=== PATIENT | female | born 1985 | race Caucasian/White ===

== ENCOUNTER 2024-08-02 11:10 | Outpatient (AMB) | payer OTHER, SELFPAY ==
--- NOTE | 2024-08-02 11:13 | A.OFFPC_ITS ---
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 Intake Note: patient here for new patient visit Community Recreation Programmer Required: No Is last menstrual period known: Yes (she just had a baby) Last menstrual period: 04/24/23 Post menopausal: No Patient : No Allergies No Known Allergies Allergy (Verified 08/02/24 11:29) Tobacco use date assessed: 08/02/24 Dental Screening Dental Screen Date: 08/02/24 Did you have a dental visit in the last 12 months?: Yes Did you have a dental problem in the last 6 months where you did not have access to dental care?: No Was dental information given to patient?: Patient has dentist HPI HPI Comments History of Present Illness Details New patient Prior PCP? Unknown name/practice Last office visit Last - 2022 Last lab work - 05/2024 at [facility] ED Acute issue(s) - No acut Past Medical History - Anxiety - IBS - Migraine - Uterus bicornis - Spinal curvature - Right renal agenesis Surgical History - LASIK surgery - Left hand ORIF - section - [place] teeth extraction Family History - MGM: Breast cancer Social History - Nonsmoker. Does not vape. Drinks 2-4 d rinks 2 night weekly. No recreational drugs - She has not been making healthy dietar y choices. She exercises routinely. He generally sleep well Health maintenance - Last eye exam was in - Last pap smear test 02/2024: normal - Last mammogram and right breast ultras ound was at [facility] on 06/14/2024: No malignancy. Recommended routine annual mammographic screening beginning at age 40 - Last dental visit was in 11/2023. She h as a dental an appointment for cleaning tomorrow - Last tetanus vaccine was 10/2023 - She has not been vaccinated for the fl u this season; declines vaccination Specialists - Followed by a psychology tech until 04/2024 [facility] Medical History (Updated 08/02/24 @ 12:43 by Dennise Calvin CNP) Agenesis of right kidney Uterus bicornis H/O migraine Anxiety Spinal curvature IBS (irritable bowel syndrome) Delivery by classical section Surgical History (Updated 08/02/24 @ 11:30 by Little Dunbar) [place] teeth extracted Hx of LASIK Family History (Updated 08/02/24 @ 11:35 by Little Dunbar) Maternal Grandmother Breast cancer Social History Housing: House Patient Tobacco Use Status: Never used Tobacco e-Cigarette/Vaping Use: Never Used Second Hand Smoke Exposure: No service: No Current occupational status: employed 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 1. Little interest or pleasure in doing things: not at all 2. Feeling down, depressed, or hopeless: not at all 3. Trouble falling or staying asleep, or sleeping too much: not at all 4. Feeling tired or having little energy: not at all 5. Poor appetite or overeating: not at all 6. Feeling bad about yourself - or that you are a failure or have let yourself or your family down: not at all 7. Trouble concentrating on things, such as reading the newspaper or watching television: not at all 8. Moving or speaking so slowly that other people could have noticed. Or the opposite - being so fidgety or restless that you have been moving around a lot more than usual: not at all 9. Thoughts that you would be better off or of hurting yourself in some way: not at all Total score: 0 Depression Screening Interpretation: Negative Depression Screening Done: Yes 62321 - PHQ-9 Billing: Yes Source: Developed by Drs. Brandon York, Arlette Arnold, Major Colin and colleagues, with an educational tenzin from [employer]. Thrive Questionnaire Date Thrive assessed: 08/02/24 I am a: Patient What is your living situation today?: I have a steady place to live Within the past 12 months, did the food you bought not last and you didn't have the money to get more?: Never true Within the past 12 months, did you worry whether your food would run out before you got money to buy more?: Never true Do you have trouble paying for medicines?: No Do you have trouble getting transportation to medical appointments?: No Do you have trouble paying your heating and electricity bill?: No Do you have trouble taking care of your child, family member or friend?: No Do you have trouble with day-to-day activities such as bathing, preparing meals, shopping, managing finances, etc.?: No Are you currently unemployed and looking for a job?: No Are you interested in more education?: No Please select the resources that you would like help with: None Currently or been in a relationship where the following occur: No concerns reported THRIVE Score: 0 AUDIT C Alcohol Use Questionnaire (AUDIT-C) 1. How often do you have a drink containing alcohol?: 2-4 times a month 2. How many drinks containing alcohol do you have on a typical day when you are drinking?: 3 or 4 3. How often do you have six or more drinks on one occasion?: Never Total Score: 3 Score Reviewed/Action Taken: Yes SARA-7 AMB Questionnaire SARA-7 Date SARA - 7 assessed: 08/02/24 Feeling nervous, anxious, or on edge: 3 = Nearly every day Not being able to stop or control worryin = Several days Worrying too much about different things: 0 = Not at all Trouble relaxin = Not at all Being so restless that it is hard to sit still: 0 = Not at all Becoming easily annoyed or irritable: 0 = Not at all Feeling afraid as if something awful might happen: 3 = Nearly every day Total SARA-7 score (0-4 normal; 5-9 mild; 10-14 moderate; 15-21 severe): 7 Source: Developed by Drs. Brandon York, Arlette Arnold, Major Colin and colleagues, with an educational tenzin from [employer]. SARA-7 Assessment Billing SARA-7 Assessment Tool: SARA-7 Assessment 95754 Review of Systems Const Details: Denies chills, Denies fatigue, Denies fever(s), Denies headache(s) and Denies weakness HEENT Denies change in vision, Denies dizziness, Denies headache(s), Denies hearing loss, Denies nasal congestion, Denies sinus pain, Denies sinus pressure and Denies sore throat Card Denies chest pain, Denies lightheadedness, Denies dyspnea and Denies other (palpitations) Resp Denies cough, Denies dyspnea and Denies wheezing GI Denies abdominal pain, Denies melena, Denies hematochezia, Denies change in bowel habits, Denies dyspepsia and Denies nausea Denies hematuria and Denies dysuria Musc Denies abnormal gait, Denies myalgias, Denies arthralgias, Denies numbness and Denies tingling Skin/Breast Denies rash, Denies unusual bruising and Denies wounds Neuro Denies abnormal gait, Denies dizziness, Denies headache(s), Denies memory loss, Denies numbness, Denies Sensory deficit (Neuro), Denies tingling and Denies weakness Psych Denies anxiety, Denies depression and Denies memory loss Endo Denies cold intolerance, Denies fatigue, Denies heat intolerance, Denies polydipsia and Denies polyuria Roberto/Lymph Denies easy bleeding and Denies easy bruising Aller/Immun Denies wheezing Physical exam (Primary Care) Vital Signs: Last Vital Signs Temp 97.3 F 08/02/24 11:23 Pulse 67 08/02/24 11:23 Resp 16 08/02/24 11:23 BP 105/57 L 08/02/24 11:23 Pulse Ox 97 08/02/24 11:23 Oxygen Delivery Method Room Air 08/02/24 11:23 BMI result Body Mass Index 26.5 Tobacco/Smoking Status: Tobacco use Status Tobacco use date assessed 08/02/24 08/02/24 11:30 Patient Tobacco Use Status Never used Tobacco 08/02/24 11:30 e-Cigarette/Vaping Use Never Used 08/02/24 11:30 PHQ-9: PHQ-9 Score PHQ-9: Total score 0 08/02/24 11:30 Depression Screening Interpretation: Negative Thrive Assessment: Date of Thrive Assessment Date Thrive assessed 08/02/24 08/02/24 11:15 Currently or been in a relationship where the following occur: No concerns reported Const Other: General: no acute distress, well developed, alert and awake Nutritional Appearance: well nourished Orientation/consciousness: patient oriented x3 HENMT Head: Yes normocephalic and Yes atraumatic Ears: hearing grossly normal bilaterally and TM's normal bilaterally General nose exam: Normal external nose present and Normal nares present Mouth: Normal oral and palatal mucosa present and moist mucous membranes Teeth and gingiva: dentition normal Throat: Yes oropharynx normal Eyes Pupils: Equal, round and reactive pupils present and Pupil accommodation reflex normal EOM: EOMs intact bilaterally Neck Neck: Yes normal visual inspection, Yes no lymphadenopathy and Yes trachea midline Thyroid: Thyroid normal Carotids: no bruits Lymphatic: no lymphadenopathy noted Chest Chest palpation & inspection: normal inspection of the chest Resp Effort & Inspection: normal respiratory effort Auscultation: clear to auscultation bilaterally Cardio Rate: regular rate Rhythm: regular rhythm Heart sounds: S1 normal heart sound present, S2 normal heart sound present, no gallops, no murmurs and no rubs Bruits: no abdominal aortic bruits and no carotid bruits GI Palpation (GI): No Abdominal aortic bruit present, Soft to palpation, nontender, No hepatosplenomegaly present and No Rebound tenderness present Auscultation: normal bowel sounds General: Yes no CVA tenderness Back/Spine/Pelvis Back: no CVA tenderness Cervical Spine: cervical ROM normal and No Cervical spine tenderness Thoracic/Lumbar Spine: thoraco-lumbar ROM normal, No pain with thoraco-lumbar ROM, No thoracic spinal tenderness and No lumbar spinal tenderness Skin General: warm and dry. Normal skin color. Normal skin turgor Lesions: no lesions Rashes: no rashes Trauma: no lacerations or abrasions Wounds: no wounds Nails: normal Neuro General: patient oriented x3, gait normal and CN's II-XI intact bilaterally Cranial nerves: Yes Equal, round and reactive pupils present Cognition (Neuro): normal cognition Gait exam (Neuro): Normal gait present Motor exam (neuro): 5/5 motor strength present throughout Sensory Exam: No Sensory deficit (Neuro) Deep tendon reflexes (DTR's): Right patellar reflex intensity grade: 2+ and Left patellar reflex intensity grade: 2+ Extrem General: Yes normal to inspection, No edema and No calf tenderness Psych Appearance: grossly normal Affect: normal affect Attitude: cooperative Thought process: Normal thought process present Coding Level of Care Code New Pt Prev Care 18-39yr(87938 Diagnoses Normal physical examination, routine Z00.00 Anxiety F41.9 Eye exam, routine Z01.00 Laboratory tests ordered as part of a complete physical exam (CPE) Z00.00 Additional Codes SARA-7 Assessment Billing - SARA-7 Assessment Tool: SARA-7 Assessment 40918 ([id number]) PHQ-9 - 53945 - PHQ-9 Billing: Yes ([id number]) Assessment & Plan Assessment & Plan (1) Normal physical examination, routine: Code(s): Z00.00 - Encounter for general adult medical examination without abnormal findings Category: Medical Plan: No significant physical restrictions or limitations noted. Advised to get lab work done and follow-up for telehealth visit in 2-3 weeks for labs review or so vanesa with symptoms or concerns. Verbalized understanding and agreed with treatment plan. (2) Anxiety: Code(s): F41.9 - Anxiety disorder, unspecified Category: Medical Plan: Continue current treatment regimen. Routine exercise encouraged. Follow-up with worsening or new symptoms. Verbalized understanding and agreed with the plan. (3) Eye exam, routine: Code(s): Z01.00 - Encounter for examination of eyes and vision without abnormal findings Category: Medical Plan: Last eye exam was in . Referred to Ophthalmology. (4) Laboratory tests ordered as part of a complete physical exam (CPE): Code(s): Z00.00 - Encounter for general adult medical examination without abnormal findings Category: Medical Plan: Fasting labs ordered as part of a complete physical exam. Advised to fast for at least 10 hours before getting labs drawn. May drink water Verbalized understanding and agreed with treatment plan. Orders: Orders Comprehensive [place]. Panel Fast Today Z00.00 - Encounter for general adult medical examination without abnormal findings Lipid Panel Today Z00.00 - Encounter for general adult medical examination without abnormal findings TSH reflex Free T4 Today Z00.00 - Encounter for general adult medical examination without abnormal findings UA CC w/rflx Micro + Cult Today Z00.00 - Encounter for general adult medical examination without abnormal findings Complete Blood Count Auto Diff Today Z00.00 - Encounter for general adult medical examination without abnormal findings Microalbumin, Random (w Creat) Today Z00.00 - Encounter for general adult medical examination without abnormal findings Referrals Ophthalmology Referral Z01.00 - Encounter for examination of eyes and vision without abnormal findings
[2024-08-02 11:23] VITALS: BP 105/57; PULSE 67; RESP 16; TEMP 36.3; O2SAT 97; BMI 26.5
== END 2024-08-02 12:02 | disposition home or self-care (01) ==
PROVIDERS: PCP Nurse Practitioner Family; Visit Provider Nurse Practitioner Family
DX: Z00.00 Encounter for general adult medical examination without abnormal findings (principal); F41.9 Anxiety disorder, unspecified; Z01.00 Encounter for examination of eyes and vision without abnormal findings

== ENCOUNTER → 2024-08-02 11:10 | Outpatient (BNVA) | payer OTHER, SELFPAY | PROVIDERS: PCP Nurse Practitioner Family; Visit Provider Nurse Practitioner Family | DX: Z00.00 Encounter for general adult medical examination without abnormal findings (principal); F41.9 Anxiety disorder, unspecified | CPT/HCPCS: 96127 ==

== ENCOUNTER 2024-08-09 09:38 | Outpatient (REF) | payer OTHER, SELFPAY ==
[2024-08-09 11:13] LABS: MANUAL DIFF FLAG NO
[2024-08-09 11:17] LABS: Appearance Urine Clear; Color Urine Yellow; Glucose Urine UA Negative (Negative); Leukocyte Esterase Urine Negative (Negative); Nitrite Urine Negative (Negative); PH 5.5 (5.0-9.0); Specific Gravity - Urine 1.025 (1.005-1.025); Urine Blood Negative (Negative); Urine Ketones Negative (Negative); Urine Protein Negative (Neg-Trace)
[2024-08-09 11:37] LABS: Basophils Absolute Auto 0.1 X10*3/uL (0.0-0.2); Eosinophils Absolute Auto 0.4 X10*3/uL (0.0-0.4); Eosinophils Percent Auto 8.4 % (0-4); Hematocrit 42.6 % (37.0-47.0); Hemoglobin 14.1 g/dl (12.0-16.0); Imm Gran Abs Auto 0.02 X10*3/uL (0.00-0.03); Imm Gran Pct Auto 0.4 % (0.0-0.4); Lymphocytes Absolute Auto 1.7 X10*3/uL (1.2-4.9); Lymphocytes Percent Auto 36.3 % (20-40); Mean Corpuscular HGB Conc 33.1 g/dl (31.0-35.0); Mean Corpuscular Hemoglobin 31.3 pg (27.0-33.0); Mean Corpuscular Volume 94.5 fL (80.0-98.0); Mean Platelet Volume 11.2 fL (9.4-12.3); Monocytes Absolute Auto 0.5 X10*3/uL (0.1-1.2); Monocytes Percent Auto 10.9 % (2-11); Neutrophils Absolute Auto 2.1 x10*3/uL (2.0-8.3); Platelet Count 211 X10*3/uL (160-400); Red Blood Count 4.51 X10*6/uL (4.20-5.50); Red Cell Distribution Width 12.9 % (11.0-16.0); White Blood Count 4.8 X10*3/uL (4.8-10.8)
[2024-08-09 12:12] LABS: Alanine Aminotransferase 20 U/L (0-31); Albumin Level 4.2 g/dL (3.5-5.0); Alkaline Phosphatase 64 U/L (39-117); Anion Gap 9 (12-20); Aspartate Amino Transferase 22 U/L (5-31); Bilirubin Total 0.6 mg/dL (0.0-1.0); Blood Urea Nitrogen 16 mg/dL (9-16); Calcium 9.5 mg/dL (8.4-10.2); Carbon Dioxide 29 mmol/L (22-29); Chloride 107 mmol/L (96-108); Cholesterol 160 mg/dL (<200); Estimated Glomerular Filt Rate > 60; Glucose Fasting 92 mg/dL (60-99); HDL Cholesterol 69 mg/dL (>40); LDL Cholesterol Calculated 81 mg/dL (<100); Potassium 4.5 mmol/L (3.3-5.1); Sodium 140 mmol/L (135-145); Total Protein 6.8 g/dL (6.5-8.0); Triglycerides 51 mg/dL (<150)
[2024-08-09 12:19] LABS: Creatinine Urine 144.11 mg/dL; Microalbum/Creatinine Ratio Ur 3.4 ug/mg cr (<30)
[2024-08-09 12:55] LABS: TSH reflex Free T4 0.97 uIU/mL (0.32-4.0)
== END 2024-08-09 09:39 | disposition home or self-care (01) ==
LOC: HO.WFDLDS 09:38
PROVIDERS: Visit Provider Nurse Practitioner Family
DX: Z00.00 Encounter for general adult medical examination without abnormal findings (principal)
CPT/HCPCS: 36415; 80053; 80061; 81003; 82043; 82570; 84443; 85025

== ENCOUNTER 2025-04-25 13:14 | Outpatient (AMB) | payer OTHER, SELFPAY ==
--- NOTE | 2025-04-25 13:15 | MHC.PC.OV ---
Vital Signs 04/25/25 13:20 Height 5 ft 7 in Weight 171 lb BMI 26.8 BP 107/59 L Blood Pressure Location Lt brachial Position Sitting Respiration 16 Pulse 61 Pulse Source Pulse Oximeter Temp 98.0 F Temp Source Oral Pulse Oximetry (%) 100 Oxygen Delivery Method Room Air Intake Visit Reasons: Left Bunion surgery on May 24 Intake Note: patient here for pre op for left bunion surgery Straddle Bug Required: No Is last menstrual period known: Yes Last menstrual period: 04/05/25 Post menopausal: No Patient : No Allergies No Known Allergies Allergy (Verified 04/25/25 13:38) Medication List - Last Reconciled 04/25/25 by Dennise Calvin CNP desvenlafaxine succinate ER (Pristiq) 50 mg PO DAILY propranolol 10 mg PO .PRN Tobacco use date assessed: 04/25/25 Dental Screening Dental Screen Date: 04/25/25 Did you have a dental visit in the last 12 months?: Yes Did you have a dental problem in the last 6 months where you did not have access to dental care?: No Was dental information given to patient?: Patient has dentist HPI HPI Comments History of Present Illness Details 39-year-old female presents for preop exam. She admits to taking her medications as prescribed without adverse reactions. She has surgery scheduled for bunionectomy of her left great toe with [place] [facility] on 05/24/2025. CBC, BMP, and EKG are required/requested before surgery. No acute symptoms at this time. [facility] Medical History (Updated 04/25/25 @ 13:37 by Dennise Calvin CNP) Agenesis of right kidney Uterus bicornis H/O migraine Anxiety Spinal curvature IBS (irritable bowel syndrome) Delivery by classical section Surgical History (Updated 08/02/24 @ 11:30 by Little Dunbar MA) [place] teeth extracted Hx of LASIK Family History (Updated 08/02/24 @ 11:35 by Little Dunbar MA) Maternal Grandmother Breast cancer Social History Housing: House Patient Tobacco Use Status: Never used Tobacco e-Cigarette/Vaping Use: Never Used Second Hand Smoke Exposure: No service: No Current occupational status: employed 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 Current occupational exposures/hazards: No Cognitive needs: No Hearing needs: No Vision needs: No Female Reproductive History Menstrual Date of last menstrual period: 04/05/25 Questionnaire Thrive Questionnaire Date Thrive assessed: 04/22/25 I am a: Patient What is your living situation today?: I have a steady place to live Within the past 12 months, did the food you bought not last and you didn't have the money to get more?: Never true Within the past 12 months, did you worry whether your food would run out before you got money to buy more?: Never true Do you have trouble paying for medicines?: No Do you have trouble getting transportation to medical appointments?: No Do you have trouble paying your heating and electricity bill?: No Do you have trouble taking care of your child, family member or friend?: No Do you have trouble with day-to-day activities such as bathing, preparing meals, shopping, managing finances, etc.?: No Are you currently unemployed and looking for a job?: No Are you interested in more education?: No Please select the resources that you would like help with: None Currently or been in a relationship where the following occur: No concerns reported THRIVE Score: 0 SARA-7 AMB Questionnaire SARA-7 Date SARA - 7 assessed: 08/02/24 Source: Developed by Drs. Brandon York, Arlette Arnold, Major Colin and colleagues, with an educational tenzin from [employer]. Review of Systems Const Details: Const Denies chills, Denies fatigue, Denies fever(s), Denies headache(s) and Denies weakness ENT Denies dizziness and Denies headache(s) Card Denies chest pain, Denies lightheadedness, Denies dyspnea and Denies other (Palpitations) Resp Denies cough, Denies dyspnea, Denies wheezing and Denies other ( shortness of breath) GI Denies abdominal pain, Denies melena, Denies hematochezia, Denies change in bowel habits, Denies dyspepsia and Denies nausea Denies hematuria and Denies dysuria Musc Denies abnormal gait, Denies myalgias, Denies arthralgias, Denies numbness and Denies tingling Skin/Breast Denies rash, Denies unusual bruising and Denies wounds Neuro Denies abnormal gait, Denies dizziness, Denies headache(s), Denies memory loss, Denies numbness, Denies Sensory deficit (Neuro), Denies tingling and Denies weakness Psych Denies anxiety, Denies depression, Denies memory loss Endo Denies cold intolerance, Denies fatigue, Denies heat intolerance, Denies polydipsia and Denies polyuria Aller/Immun Denies wheezing Physical exam (Primary Care) Tobacco/Smoking Status: Tobacco use Status Tobacco use date assessed 08/02/24 04/25/25 13:18 Patient Tobacco Use Status Never used Tobacco 04/25/25 13:18 e-Cigarette/Vaping Use Never Used 04/25/25 13:18 Thrive Assessment: Date of Thrive Assessment Date Thrive assessed 04/22/25 04/25/25 13:18 Currently or been in a relationship where the following occur: No concerns reported Const Other: General: no acute distress and well developed Nutritional Appearance: well nourished Orientation/consciousness: patient oriented x3 HENMT Head: Yes normocephalic and Yes atraumatic Eyes General: appearance normal, both eyes and all related structures Pupils: Equal, round and reactive pupils present EOM: EOMs intact bilaterally Resp Effort & Inspection: normal respiratory effort Auscultation: clear to auscultation bilaterally Cardio Rate: regular rate Rhythm: regular rhythm Heart sounds: S1 normal heart sound present, S2 normal heart sound present, no gallops, no murmurs and no rubs GI Palpation (GI): No Abdominal aortic bruit present, Soft to palpation, nontender, No hepatosplenomegaly present and No Rebound tenderness present Auscultation: normal bowel sounds General: Yes no CVA tenderness Back/Spine/Pelvis Back: no CVA tenderness Cervical Spine: cervical ROM normal and No Cervical spine tenderness Thoracic/Lumbar Spine: thoraco-lumbar ROM normal, No pain with thoraco-lumbar ROM, No thoracic spinal tenderness and No lumbar spinal tenderness Extrem General: Yes normal to inspection, No edema and No calf tenderness Skin General: warm and dry. Normal skin color. Normal skin turgor Neuro General: patient oriented x3, gait normal and no focal neuro deficit Cranial nerves: Yes Equal, round and reactive pupils present Cognition (Neuro): normal cognition Gait exam (Neuro): Normal gait present Sensory Exam: No Sensory deficit (Neuro) Psych Appearance: grossly normal Affect: normal affect Attitude: cooperative Thought process: Normal thought process present Coding Level of Care Code Est Pt Level 4 (65103) Diagnoses Preop examination Z01.818 Assessment & Plan Assessment & Plan (1) Preop examination: Code(s): Z01.818 - Encounter for other preprocedural examination Category: Medical Plan: Normal physical and neuro exam. EKG today with normal sinus rhythm. CBC and BMP ordered. Patient is medically cleared for bunionectomy pending CBC and BMP results. Orders: Orders Basic Metabolic Panel Today Z01.818 - Encounter for other preprocedural examination Complete Blood Count no Diff Today Z01.818 - Encounter for other preprocedural examination
[2025-04-25 13:20] VITALS: BP 107/59; PULSE 61; RESP 16; TEMP 36.7; O2SAT 100; BMI 26.8
--- OUTSIDE RECORDS SUMMARY | 2025-04-25 15:35 | XMS_ITS | Encounter Summary ---
Author Organization [facility] Address [address] [place] [address] Care Team Providers Care Chute Feeder Name Role Phone Obtain, Unable To Primary Care Provider Unavaila ble Reason for Visit * Reason Comments Follow-up Encounter Details Date Type Department Care Team ([facility] Contact Info) Description 05/28/2021 Documentation Reproductive Endocrinology & Infertility [address] [place] [address] [address] [place], [place] [id number] Dino Valentin MD [address] [place] [phone] Social History Tobacco Use Types Packs/Day Years Used Date Smoking Tobacco: Never Alcohol Use Standard Drinks/Week Comments Yes 0 (1 standard drink = 0.6 oz pur e alcohol) Comments No Sex and Gender Information Value Date Recorded Sex Assigned at Female 02/04/2021 1:20 PM EDT Legal Sex Female 4:58 PM EST Gender Identity Female 02/04/2021 1:20 PM EDT Sexual Orientation Straight 02/04/2021 1: 20 PM EDT documented as of this encounter Plan of Treatment Not on file documented as of this encounter Visit Diagnoses Not on filedocumented in this encounter Care Teams Chute Feeder Relationship Specialty Start Date End Date Obtain, Unable To PCP - General 11/13/20 documented as of this encounter
--- OUTSIDE RECORDS SUMMARY | 2025-04-25 15:35 | XMS_ITS | Encounter Summary ---
Author Organization [address] [address] Care Team Providers Care Principal Technical Architect Name Role Phone Debra Carranza MD Primary Care Provider [phone]- [phone] Pcp, No Primary Care Provider Unavailabl e Encounter Details Date Type Department Care Team (Late st Contact Info) Description 08/05/2018 Scanned Document [address] [phone] Provider, Generic Social History Tobacco Use Types Packs/Day Years Used Date Smoking Tobacco: Never Smokeless Tobacco: Never Comments No Sex and Gender Information Value Date Recorded Sex Assigned at Not on file Legal Sex Female 4:01 PM EST Gender Identity Not on file Sexual Orientation Not on file documented as of this encounter Plan of Treatment Not on file documented as of this encounter Visit Diagnoses Not on filedocumented in this encounter Care Teams Principal Technical Architect Relationship Specialty Start Date End Date Debra Carranza MD [address] [place] [address] [place] [id number] PCP - General Internal Medicine 07/12/18 11/05/22 Pcp, No [address] [place] [id number] PCP - General 11/06/22 documented as of this encounter
--- OUTSIDE RECORDS SUMMARY | 2025-04-25 15:35 | XMS_ITS | Encounter Summary ---
Author Organization [address] [address] Care Team Providers Care Collector Of Internal Revenue Name Role Phone Debra Carranza MD Primary Care Provider [phone]- [phone] Pcp, No Primary Care Provider Unavailabl e Encounter Details Date Type Department Care Team (Late st Contact Info) Description 08/05/2018 Scanned Document [address] [phone] Provider, Generic Social History Tobacco Use Types [...] on filedocumented in this encounter Care Teams Collector Of Internal Revenue Relationship Specialty Start Date End Date Debra Carranza MD [address] [place] [address] [place] [id number] PCP - General Internal Medicine 07/12/18 11/05/22 Pcp, No [address] [place] [id number] PCP - General 11/06/22 documented as of this encounter
--- OUTSIDE RECORDS SUMMARY | 2025-04-25 15:35 | XMS_ITS | Encounter Summary ---
Author Organization [facility] and [facility] Address [address] [place] [address] Care Team Providers Care Color Finisher Name Role Phone Obtain, Unable To Primary Care Provider Unavaila ble Reason for Visit * Reason Comments Follow-up Encounter Details Date Type Department Care Team ([facility] Contact Info) Description 03/06/2021 Documentation Reproductive Endocrinology & Infertility [address] [place] [address] 2nd Floor [place], [place] [id number] Dino Valentin MD [address] [place] [phone] Social History Tobacco Use Types Packs/Day [...] on filedocumented in this encounter Care Teams Color Finisher Relationship Specialty Start Date End Date Obtain, Unable To PCP - General 11/13/20 documented as of this encounter
--- OUTSIDE RECORDS SUMMARY | 2025-04-25 15:35 | XMS_ITS | Patient Health Record ---
Author Organization [facility] Address [address] [address] Care Team Providers Care Area Field Worker Name Role Phone Dennise Calvin Primary Care Provider PATTI Cosby Unavailable [phone] Allergies No Known Allergies Reason For Referral No Information Medications Medication SIG (Take, Route, Frequency, Duration) Notes Start Date End Date Status Pristiq Active Active Problems Problem Type SNOMED Code ICD Code Onset Dates Problem Status W/U Status Risk Notes Problem Hallux valgus of left foot (2379566336) Hallux valgus of left foot (M20.12) Active confirmed Vital Signs Heart Rate 84 /min 12/05/2024 Temperature 97.5 degrees Fahrenheit 12/05/2024 Respiratory Rate 12 /min 12/05/2024 Height 5ft 7in in 12/05/2024 Weight 157.8 lbs 12/05/2024 BMI 24.71 kg/m2 12/05/2024 Encounters Encounter Location Date Provider Diagnosis [facility] [address] 12/05/2024 PATTI PETER Hallux valgus of left foot M20.12 and Pain in left foot M79.672 [facility] [address] 10/31/2024 PATTI PETER [facility] [address] 03/29/2025 PATTI PETER [facility] [address] [address] 03/31/2025 PATTI PETER [facility] [address] [phone] 03/31/2025 PATTI PETER Assessments Encounter Date Diagnosis (ICD Code) Assessment Notes Treatment Notes Treatment Clinical Notes Section Notes 12/05/2024 Pain in left foot (ICD-10 - M79.672) 12/05/2024 Hallux valgus of left foot (ICD-10 - M20.12) This is an outpatient visit for evaluation and management of a new patient, which required appropriate review of pertinent medical history, review of all previous records, and examination and decision-making. Time was 45 minutes spent in review of all these facets including face to face discussion with the patient regarding my findings and in discussion of a current and future treatment plan. 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 We discussed this is also compounded by the shortened 1st metatarsal. We discussed orthotics can help stabilize the deformity but will not correct the deformity. Toe spacers can help separate the toes but will not correct the deformity. Wider shoes can help with improvement of pain but will not alter the deformity. We discussed that the only way to fix the structural deformity is surgical correction. We discussed that she has an IM angle of about 16 degrees on the left and 20 degrees on the right and would do well with a distal bunionectomy. We discussed this would be an 8-12 week recovery. She would be non weight bearing for 2 weeks followed by another 2-4 weeks of protected to full weight bearing in a walking boot. She would typically return to a regular shoe at about week 5-6. We discussed this is a same day surgery, and the total bone healing would be 8-12 weeks. The swelling can last 3-6 months. She will consider this plan and get back to my office when she decides she may want to have the surgery. Plan Of Treatment Pending Test Test Name Order Date Electrocardiogram (EKG) 03/31/2025 X ray : Foot, left 3v 12/05/2024 BASIC METABOLIC PANEL 03/31/2025 CBC (COMPLETE BLOOD COUNT) 03/31/2025 Next Appt Details Provider Name:PATTI SCHOFIELD PETER, 05/15/2025 04:00:00 PM, [address] [facility] [address], [place], [address], Provider Name:PATTI PETER, 05/24/2025 01:30:00 PM, [address] [place], [address], Provider Name:PATTI PETER, 05/26/2025 02:30:00 PM, [address] [facility], [address] [place] [address], [place], [address], Provider Name:PATTI PETER, 06/07/2025 02:45:00 PM, [address] [facility], [address] [address], [place], [address], Provider Name:PATTI PETER, 06/28/2025 01:30:00 PM, [address] [facility], [address] [address], [place], [address], Insurance Providers Payer Name Payer Address Payer Phone Subscriber Number Group Number Insured Name Patient Relationship to Insured Coverage Start Date Coverage End Date [place] [address] [place] [phone] [id number] Inna Llamas Self - patient is the insured Medical (General) History Medical History History ICD Code anxiety + COVID 2 COVID vaccinated X 3 (Moderna) Surgical History Surgery Date(Month/Year) left hand orif 2015 bilateral lasik surgery 2023 Hospitalization History Reason Date(Month/Year) 2023
--- OUTSIDE RECORDS SUMMARY | 2025-04-25 15:35 | XMS_ITS | Encounter Summary ---
Author Organization [facility] and [facility] Address [address] [place] [address] Care Team Providers Care Assistant Food Service Manager Name Role Phone Obtain, Unable To Primary Care Provider Unavaila ble Encounter Details Date Type Department Care Team ([facility] st Contact Info) Description 11/15/2020 Documentation Reproductive Endocrinology & Infertility [address] [place] [address] 2nd [place] [address] Dino Valentin MD [address] [place] [address] [address] [place] [address] Social History Tobacco Use Types Packs/Day Years Used Date Smoking Tobacco: Never Assessed Comments Unknown Sex and Gender Information Value Date Recorded Sex Assigned at Female 02/04/2021 1:20 PM EDT Legal Sex Female 4:58 PM EST Gender Identity Female 02/04/2021 1:20 PM EDT Sexual Orientation Straight 02/04/2021 1: 20 PM EDT documented as of this encounter Plan of Treatment Not on file documented as of this encounter Visit Diagnoses Not on filedocumented in this encounter Care Teams Assistant Food Service Manager Relationship Specialty Start Date End Date Obtain, Unable To PCP - General 11/13/20 documented as of this encounter
--- OUTSIDE RECORDS SUMMARY | 2025-04-25 15:36 | XMS_ITS | Clinical Summary ---
Author Organization [facility] Address [address] [place] [address] Care Team Providers Care Clay Shop Supervisor Name Role Phone Pcp, No Primary Care Provider Unavailabl e Allergies No known active allergies Medications b complex vitamins tablet Take 1 tablet by mouth daily. Active Social History Tobacco Use Types Packs/Day Years Used Date Smoking Tobacco: Never Smokeless Tobacco: Never Comments No Sex and Gender Information Value Date Recorded Sex Assigned at Not on file Legal Sex Female 4:01 PM EST Gender Identity Not on file Sexual Orientation Not on file Last Filed Vital Signs Vital Sign Reading Time Taken Comments Blood Pressure 116/66 11/26/2020 9:14 AM EDT Pulse 63 11/26/2020 9:14 AM EDT Temperature 36.3 C (97.3 F) 11/26/2020 9:14 AM EDT Respiratory Rate 16 07/23/2018 9:34 AM EST Oxygen Saturation 100% 11/26/2020 9:14 AM EDT Inhaled Oxygen Concentration - - Weight 73.9 kg (163 lb) 07/23/2018 9:34 AM EST Height 170.2 cm (5' 7 ) 07/23/2018 9:34 AM EST Body Mass Index 25.53 07/23/2018 9:34 AM EST Plan of Treatment Health Maintenance Due Date Last Done Comments Hepatitis C Virus Screening 1986 DTaP/Tdap/Td Vaccines (1 - Tdap) 2005 Hepatitis B Vaccines (1 of 3 - 19+ 3-dose series) 2005 Pap Smear (Ages 21-65) 2007 HPV Vaccines (1 - 3-dose SCD M series) 2013 Influenza Vaccine 03/17/2025 06/05/2021, 09/12/2019 COVID-19 Vaccine (2024-2 6 season) 2025 07/02/2021, 09/19/2020, 08/22/2020 HIV Screening Completed 11/21/2020 Pneumococcal Vaccine: Pediatric (0-5 Years) and At-Risk Patients (6 to 49 Years) Aged Out No longer eligible b ased on patient's age to complete this topic Insurance [employer] HMO/POS [facility] PPO [id number] [id number] Care Teams Clay Shop Supervisor Relationship Specialty Start Date End Date Pcp, [address] [place] [address] PCP - General 11/06/22
--- OUTSIDE RECORDS SUMMARY | 2025-04-25 15:36 | XMS_ITS | Clinical Summary ---
Author Organization [address] Address [address] [place] [address] Care Team Providers Care Front Elevator Operator Name Role Phone Obtain, Unable To Primary Care Provider Unavaila ble Allergies No known active allergies Medications * This document contains information received from the source organization and may not represent a complete record from that organization. doxycycline hyclate (VIBRAMYCIN) 100 mg capsule Take 1 cap @ 8:00am & 8:00pm the day before SHG. Repeat for two days. 6 capsule 11/19/2020 Active vit37/iron/folic acid (PRENATA ORAL) Take by mouth daily. Active Active Problems No known active problems Immunizations Immunization Administration Dates Next Due COVID-19, MODERNA 12Y+, 0.5 mL 09/19/2020,2020 COVID-19, MODERNA Booster, 0.25mL 07/02/2021 Influenza, injectable, quadrivalent, preservativ e free 06/05/2021,06/30/2020 Family History Medical History Relation Name Comments Breast cancer Neg Hx Colon cancer Neg Hx Ovarian cancer Neg Hx Social History Tobacco Use Types Packs/Day Years [...] Orientation Straight 02/04/2021 1: 20 PM EDT Last Filed Vital Signs Vital Sign Reading Time Taken Comments Blood Pressure 118/79 04/08/2021 12:00 AM EDT Pulse - - Temperature - - Respiratory Rate - - Oxygen Saturation - - Inhaled Oxygen Concentration - - Weight 72.6 kg (160 lb) 05/28/2021 2:49 PM EDT p er patient Height 170.2 cm (5' 7 ) 05/28/2021 2:49 PM EDT Body Mass Index 25.06 05/28/2021 2:49 PM EDT Plan of Treatment Health Maintenance Due Date Last Done Comments Tetanus adult (Td q 10,TDAP once) 2006 Cervical cancer screening 2007 Covid-19 vaccine series () 04/17/2025 07/02/2021, 09/19/2020, 08/22/2020 Influenza vaccine 04/17/2025 06/05/2021, 06/30/2020 RSV Immunization (1 - 1-dose 75+ series) 2061 HIV screening Completed 11/21/2020 Hepatitis C screening Completed 11/21/2020 Meningococcal B Vaccine Aged Out No l onger eligible based on patient's age to complete this topic Meningococcal Vaccine Aged Out No jj amy eligible based on patient's age to complete this topic Pneumococcal Vaccine (2 - 49 years) Aged Out No longer eligible b ased on patient's age to complete this topic Procedures Procedure Name Priority Date/Time Associated Diagnosis Comments HIV-1/HIV-2 ANTIBODY/ANTIGEN SCREEN W/REFLEX ([facility]) Routine 11/21/2020 7:11 AM EDT Female infertility HEPATITIS C AB WITH REFLEX TO HCV PCR Routine 11/21/2020 7:11 AM EDT Female infertility from Last 3 Months or Most Recently Relevant to Health Maintenance Results * HIV-1/HIV-2 antibody/antigen screen w/reflex ([facility]) (11/21/2020 7:11 AM EDT) HIV 1 and 2 Antibody/Antigen Screen Negative Negative 11/21/2020 1:36 PM EDT [facility] Comment:Interpretation: This specimen is HIV antibody negative. A negative test does not exclude the possibility of infection with HIV. Negative results may be seen in early infection, advanced AIDS and agammaglobulinemic patients. If suspicion is high, submit a sample for HIV nucleic acid testing. Blood Venipuncture / Unknown 11/21/2020 7:11 AM EDT 11/21/2020 7:14 AM EDT Dino Valentin MD LAB BLOOD ORDERABLES Final Res ult Performing Organization Address [facility] de Phone Number [facility] [address] [place] [address] * Hepatitis C Ab with reflex to HCV PCR (11/21/2020 7:11 AM EDT) Hepatitis C Antibody Negative Negative 11/21/2020 1:36 PM EDT [facility] Comment:A negative result do es not exclude HCV infection, since antibodies are not detectable for 4-8 weeks after initial infection, or may not develop in compromised hosts. In high-risk individuals, repeat antibody testing in 2 months and/or HCV RNA PCR should be considered. Blood Venipuncture / Unknown 11/21/2020 7:11 AM EDT 11/21/2020 7:14 AM EDT Dino Valentin MD LAB BLOOD ORDERABLES Final Res ult Performing Organization Address [facility] Co de Phone Number [facility] [address] [place] [address] from Last 3 Months or Most Recently Relevant to Health Maintenance Insurance on file [employer] on file on file Care Teams Front Elevator Operator Relationship Specialty Start Date End Date Obtain, Unable To PCP - General 11/13/20
--- OUTSIDE RECORDS SUMMARY | 2025-04-25 15:36 | XMS_ITS | Encounter Summary ---
Author Organization [facility] and [facility] Address [address] [place] [address] Care Team Providers Care Treater Name Role Phone Obtain, Unable To Primary Care Provider Unavaila ble Encounter Details Date Type Department Care Team (Latest Contact Info) Description 03/02/2020 Transcribed Orders [facility] [address] [place], [place] [phone] Sunil Salinas MD [address] [place] [phone] Suspected COVID-19 virus infection (Primary Dx) Social History Tobacco Use Types Packs/Day Years [...] on file documented as of this encounter Results * SARS CoV-2 (COVID-19) RNA - Reference Lab ([facility]) (03/02/2020 11:12 AM EDT) SARS-CoV-2 RNA (COVID-19) Negative Negative 03/03/2020 12:32 AM EDT [facility] Comment: This home care assistant mediated amplification dual kinetic assay was developed by [email or web address] and targets RNA from the SARS-CoV-2 virus. This assay is run on the [employer] system. It has been validated for clinical use by the [facility] Microbiology Laboratory. It has been granted Emergency Use Authorization by the [place] FDA. Note that falsely negative results can be due to poor sample quality, suboptimal sample type, low viral load, and viral genome variability. Patient Information: https://www.fda.gov/media/570030/download Provider Information: https://www.fda.gov/media/329481/download Test performance has not been evaluated in asymptomatic patients. Test ordering and result interpretation is at the discretion of the ordering provider. Viral NASOPHARYNGEAL STRUCTURE / Unknown Collection / Unknown 03/02/2020 11:12 AM EDT 03/02/2020 5:22 PM EDT Sunil Salinas MD MICROBIOLOGY - GENERAL O RDERABLES Final Result Performing Organization Address [facility] Co de Phone Number [facility] [address] [place] [address] documented in this encounter Visit Diagnoses Diagnosis Suspected COVID-19 virus infection- Primary documented in this encounter Additional Health Concerns Infection Onset Date Last Indicated Resolved Time R/O COVID-19 03/02/2020 03/02/2020 03/03/2020 12:3 2 AM EDT documented as of this encounter Care Teams Treater Relationship Specialty Start Date End Date Obtain, Unable To PCP - General 11/13/20 documented as of this encounter
== END 2025-04-25 13:47 | disposition home or self-care (01) ==
LOC: HO.HMCFM 13:14
PROVIDERS: PCP Nurse Practitioner Family; Visit Provider Nurse Practitioner Family
DX: Z01.818 Encounter for other preprocedural examination (principal)

== ENCOUNTER 2025-04-25 13:14 | Outpatient (REF) | payer OTHER, SELFPAY ==
[2025-04-25 18:37] LABS: Hematocrit 39.7 % (37.0-47.0); Hemoglobin 13.2 g/dl (12.0-16.0); Mean Corpuscular HGB Conc 33.2 g/dl (31.0-35.0); Mean Corpuscular Hemoglobin 30.6 pg (27.0-33.0); Mean Corpuscular Volume 91.9 fL (80.0-98.0); NRBC Abs Auto 0.020 X10*3/uL (0.0-0.012); NRBC Pct Auto 0.3 /100WBC (0.0-0.2); Platelet Count 206 X10*3/uL (160-400); Red Blood Count 4.32 X10*6/uL (4.20-5.50); White Blood Count 6.7 X10*3/uL (4.8-10.8)
[2025-04-25 18:52] LABS: Anion Gap 10 (12-20); Blood Urea Nitrogen 24 mg/dL (9-16); Calcium 9.2 mg/dL (8.4-10.2); Carbon Dioxide 27 mmol/L (22-29); Chloride 108 mmol/L (96-108); Estimated Glomerular Filt Rate > 60; Potassium 4.2 mmol/L (3.3-5.1); Sodium 141 mmol/L (135-145)
== END 2025-04-25 13:15 | disposition home or self-care (01) ==
LOC: HO.WFDLDS 13:14
PROVIDERS: PCP Nurse Practitioner Family; Visit Provider Nurse Practitioner Family
DX: Z01.818 Encounter for other preprocedural examination (principal)
CPT/HCPCS: 36415; 80048; 85027